=== PATIENT | male | born 1965 | race African-American/Black ===

== ENCOUNTER → 2023-09-15 08:48 | Outpatient (REF) | payer MEDICARE, OTHER, SELFPAY | LOC: HWRCS 08:48 | PROVIDERS: ATTENDING PHYSICIAN Internal Medicine Cardiovascular Disease; FAMILY PHYSICIAN Internal Medicine | DX: I25.5 Ischemic cardiomyopathy (principal) | CPT/HCPCS: 93306 ==

== ENCOUNTER → 2024-01-13 07:35 | Outpatient (REF) | payer OTHER, SELFPAY | LOC: DHCBC/DCA 07:35 | PROVIDERS: ATTENDING PHYSICIAN Internal Medicine Cardiovascular Disease; FAMILY PHYSICIAN Internal Medicine | DX: I25.5 Ischemic cardiomyopathy (principal) | CPT/HCPCS: 78452; 93017; A9500 ==

== ENCOUNTER 2024-02-01 11:51 | Inpatient (IN) | payer OTHER, SELFPAY ==
[2024-02-01] VITALS (12 sets, daily range): BP systolic 118–164; BP diastolic 65–115; BMI 34.6
--- NOTE | 2024-02-01 09:41 | ED.GENMED ---
History of Present Illness
General
Chief Complaint: Fainting/Passed Out
Source: patient and spouse
Exam Limitations: none
Time Seen by Provider: 02/01/24 09:40
Nursing documentation reviewed up to this point in time: agreed with
History of Present Illness
History of Present Illness:
The patient is a very pleasant 58-year-old man with a past medical history of coronary artery disease, CHF, and defibrillator who presents after having a syncopal episode while walking on a treadmill at around 6 AM today. Patient reports that he
had no symptoms while he was walking and the next thing he remembers was waking up in the sleeping position on the treadmill. He denies any pain. He denies headache. He does not think he hit his head. He denies neck and back pain. He denies
chest pain or shortness of breath. Patient's interrogation showed V-fib.
Past History
Past History
ED Past Medical History: CAD, CHF and HTN
ED Past Surgical History: Cardiac and Other (Defibrillator)
Social History
Tobacco: Other
Alcohol: Other
Drug: Other
Personal:
Living: with family
Employment: Other
Family History
Family History: Other
Review of Systems
Review of Systems
Allergies reviewed?: Yes
All Other Systems: ROS reviewed and negative except as documented in HPI and ROS
Constitutional: Reports no symptoms
EENT: Reports no symptoms
Respiratory: Reports no symptoms
Cardiac: Reports syncope
ABD/GI: Reports no symptoms
: Reports no symptoms
Musculoskeletal: Reports no symptoms
Skin: Reports no symptoms
Neurological: Reports no symptoms
Endocrine: Reports no symptoms
Hematologic/Lymphatic: Reports no symptoms
Psychiatric: Reports no symptoms
Phy Exam
Physical Exam
Physical Exam:
Physical Exam
General: no apparent distress, not acutely ill, atraumatic face and head. Patient is smiling, conversational
Neck: supple. nontender
Heart: s1/s2 regular rate and rhythm, no chest wall tenderness
Lungs: no acute respiratory distress. clear bilaterally. No vertebral spine tenderness
Abdomen: normal bowel sounds. not tender. no CVAT
Neuro: alert and oriented. no focal neurological deficits
Skin: no rash
Psychiatric: well kept. interactive and cooperative
Extremities: no edema. no calf tenderness. negative homans. good distal pulses, pelvis and hips nontender. Atraumatic upper and lower extremities
Course
Orders/Labs/Results
Orders:
Orders
02/01/24 09:31
Electrocardiogram (*1) Urgent
Reason for Study: Syncope
02/01/24 09:32
EKG- Treatment ONCE
02/01/24 10:32
CMP [Comprehensive Metabolic Panel] Urgent
Complete Blood Count/With Diff Urgent
Magnesium Urgent
Abnormal Lab Results
02/01/24
10:32
RBC 4.38 L 10^6/uL
(4.70-6.10)
MCV 96.1 H fL
(80.0-94.0)
MCH 33.1 H pg
(27.0-31.0)
MPV 11.3 H fL
(7.4-10.4)
BUN 26 H mg/dl
(9-20)
Glucose 105 H mg/dl
(70-99)
02/01/24 10:32
02/01/24 10:32
Vital Signs
Initial and Last Documented VS:
Initial Vital Signs
Temp Pulse Resp BP Pulse Ox
98.4 F 74 18 122/79 96
02/01/24 09:23 02/01/24 09:23 02/01/24 09:23 02/01/24 09:23 02/01/24 09:23
Last Documented Vital Signs
Temp Pulse Resp BP Pulse Ox
98.4 F 65 22 138/84 96
02/01/24 09:23 02/01/24 11:00 02/01/24 11:00 02/01/24 11:00 02/01/24 09:23
MDM/Problems Addressed
Differential Diagnosis Includes:
Ventricular fibrillation, ventricular tachycardia, acute coronary syndrome
MDM/Problems Addressed:
Patient presents after having an acute syncopal episode
Chronic conditions affecting care:
CHF, coronary artery disease
Acute Exacerbation and/or Progression of Chronic Illness:
Patient likely has acute exacerbation of chronic coronary artery disease
Acute Exacerbation and/or Progression of Chronic Illness: CAD and Cardiomyopathy
*Pulse Oximetry
Patient hypoxic: no
*EKG
Interpreted by ED Provider?: Yes
Interpretation: abnormal
Comparison EKG: no comparison EKG present
Rate: normal
Rhythm: sinus
[place]: normal axis
Interval: normal interval
QRS Pattern: normal QRS
Ischemia: non-specific ST changes
*Hot Frame Tender Interpretation
Rate: normal
Interpretation: normal
Rhythm: sinus
*Critical Care Note
Total Time (30-74mins, 75-104mins- exclusive of procedures): Not Applicable
Data Reviewed
Review of Other/Old Records Reveals: Testing (Cardiac echo showed an EF of 20 to 25%) and Other (I looked over defibrillator interrogation report which shows an episode of V-fib)
Source: patient and spouse
Update Note
Update Note:
11:30 AM patient continues to feel well and comfortable. Dr. Griffiths and hospitalist aware patient is being admitted.
ED Attending Note
-
Portions of this chart may have been created with voice recognition software.� Occasional wrong word or��sound alike� substitutions may have occurred due to the inherent limitations of voice recognition software.
Discharge Plan
Departure
Patient Disposition: Admit
Date of Disposition: 02/01/24
Time of Disposition: 10:40
Admit to: Telemetry
Presentation/result/management discussed w/ accepting MD/DO: Hospitalist
Condition: Good
Covid-19: Not Applicable
Discharge Problem:
AICD discharge, Syncope and collapse, History of ventricular fibrillation
Prescriptions:
No Action
aspirin 81 MG tablet,chewable
81 mg PO DAILY
furosemide 40 MG tablet
40 mg PO DAILY Qty: 60 0RF
rosuvastatin 10 MG tablet
10 mg PO QPM Qty: 60 0RF
magnesium oxide 500 MG tablet
250 mg PO DAILY
allopurinol 100 mg Tablet
100 mg PO TID
carvedilol [Coreg] 3.125 mg Tablet
3.125 mg PO BID
ibuprofen [Advil] 200 mg Tablet
200 mg PO BIDPRN PRN (Reason: mild pain)
colchicine 0.6 mg Tablet
0.6 mg PO DAILYPRN PRN (Reason: gout flares )
Entresto 24-26 mg Tablet
1 tab PO BID
Referrals:
Damien Morse MD [Family Provider] -
Interventions
Interventions:
*Risk Screen - Suicide Last Done: 02/01/24 10:15
*General Assessment Last Done: 02/01/24 10:15
*Neglect/Abuse Screening Last Done: 02/01/24 10:15
ED- Fall Risk Assessment Last Done: 02/01/24 10:15
*ED COVID-19 Vaccine History Last Done: 02/01/24 10:37
ED- Cardiac Assessment Last Done: 02/01/24 10:15
ED- Neurological Assessment Last Done: 02/01/24 10:15
Discharge Date and Time
Print Language: SINHALA
[2024-02-01 10:46] LABS: % Basophils 1.3 % (0-2); % Eosinophils 5.4 % (0-6); % Immature Granulocytes 0.2 % (0-0.5); % Lymphocytes 35.2 % (20.5-51.1); % Monocytes 8.9 % (1.7-9.3); Absolute Basophils 0.1 10^3/uL (0-0.2); Absolute Eosinophils 0.3 10^3/uL (0-0.7); Absolute Lymphocytes 2.2 10^3/uL (1.2-3.4); Absolute Monocytes 0.6 10^3/uL (0.1-0.6); Absolute Neutrophils 3.1 10^3/uL (1.4-6.5); Hematocrit 42.1 % (39.0-52.0); Hemoglobin 14.5 g/dL (13.0-18.0); Mean Corp Hgb Conc. 34.4 g/dL (33.0-37.0); Mean Corpuscular Hgb 33.1 pg (27.0-31.0); Mean Corpuscular Volume 96.1 fL (80.0-94.0); Mean Platelet Volume 11.3 fL (7.4-10.4); Nucleated Red Blood Cells % 0 % (-); Platelet Count 147 10^3/uL (130-400); Red Blood Cell Count 4.38 10^6/uL (4.70-6.10); Red Cell Dist. Width 13.8 % (11.5-14.5); White Blood Cell Count 6.3 10^3/uL (4.8-10.8)
[2024-02-01 11:02] LABS: ALT (SGPT) 44 U/L (0-50); AST (SGOT) 40 U/L (17-59); Albumin 4.1 g/dl (3.5-5.0); Alkaline Phosphatase 98 U/L (38-126); Blood Urea Nitrogen 26 mg/dl (9-20); Calcium 9.2 mg/dl (8.4-10.2); Carbon Dioxide 25 mmol/L (22-30); Chloride 107 mmol/L (98-107); Estimated Creatinine Clearance 73 ml/min; Glucose 105 mg/dl (70-99); Magnesium 2.1 mg/dl (1.6-2.3); Potassium 4.5 mmol/L (3.5-5.1); Sodium 137 mmol/L (135-145); Total Bilirubin 0.5 mg/dl (0.2-1.3); Total Protein 6.3 g/dl (6.3-8.2); eGFR > 60.00
[2024-02-01 13:35] LABS: ACT-LR - POC > 397 Seconds (116-155)
[2024-02-01 13:45] LABS: ACT-LR - POC 382 Seconds (116-155)
--- NOTE | 2024-02-01 14:14 | ITS.CL.CATH ---
Assistant Counsel - Catheterization
Cardiac Catheterization
Procedure Report:
LEFT HEART CATHETERIZATION AND CORONARY INTERVENTION
Date of Procedure: February 01, 2024
Referring: Dr. Placido Sim
PROCEDURES:
1. Left heart catheterization with coronary and single-plane left ventriculography
2. Successful stenting of the mid circumflex into a large terminal obtuse marginal branch with a 3.5 x 38 mm Geo stent that was implanted at nominal pressures then postdilated with a 3.75 mm noncompliant balloon to 16 butch.
INDICATION: This is a 58-year-old gentleman with a past medical history notable for coronary artery disease and single-vessel coronary artery bypass graft with RIOS-LAD 06/16/2017. Prior to that time he suffered a left MCA frontoparietal CVA
treated with thrombolysis on 03/03/2017. Neurologically he improved significantly. He was found to have an ischemic cardiomyopathy with an estimated ejection fraction of 25% and found to have total occlusion of the ostial LAD with a distal vessel
filling via well developed epicardial collaterals from the right to the LAD. Additionally, he has a history of hypertension, hyperlipidemia, and COPD. After his coronary artery bypass grafting he was referred for repeat coronary angiography and
found to have 100% occlusion of the RIOS-LAD when he was referred for coronary angiography on 11/19/2020.
The patient had a recent stress study notable for an estimated ejection fraction of 24%. Perfusion imaging revealed a medium area of moderately decreased perfusion that was fixed in the basal anteroseptal, basal inferior, mid anteroseptal, mid
anterior segments consistent with infarction. Additionally, there was a large area of absent tracer uptake that was fixed at the apex and apical anterior segment consistent with infarction.
The patient reports that he was at the gym this morning walking on a treadmill at 2.8-2.9 mph and experienced sudden loss of consciousness. He was unconscious for 10 to 15 seconds. He received an ICD shock. 911 was called, however, the patient
refused to go to the emergency department and returned home. He transmitted an ICD interrogation. An alert was transmitted this morning at 6 AM showing ventricular fibrillation cardioverted with a single 36 J shock. He was instructed to go to
[facility] for further evaluation. Of note, he did have an episode of ATP pacing in August 2023 and additional runs of NSVT.
ACCESS: Right radial artery, 6 [place]ese sheath
HEMODYNAMICS : (mmHg)
AO (s/d) : 109/76
LV (s/d) : 106/7
LVEDP : 12
CORONARY ANGIOGRAPHY
Dominance: Right
LEFT MAIN: Normal
LEFT ANTERIOR DESCENDIN% ostially occluded. The entirety of the LAD fills via very well developed epicardial collaterals from the RCA. The collaterals are also noted to fill the diagonal branch
RAMUS: Small
CIRCUMFLEX: The circumflex is a medium-large caliber nondominant vessel supplying a small OM1. The circumflex has a 40% stenosis midportion beyond the OM1 and terminates at a very large OM 2 that has diffuse 30% proximal narrowing and 80% hazy
stenosis in its midportion
RIGHT CORONARY ARTERY: The right coronary artery is a large-caliber dominant vessel with a high anterior origin from the aorta. The RCA has minor irregularities over its course but no focal obstructive stenosis. The PDA is a large. The
posterolateral branch is large. Well-developed epicardial collaterals are noted to fill the entirety of the LAD. Faint collaterals are also noted to fill a diagonal branch
GRAFT ANGIOGRAPHY:
1. RIOS-LAD: Known to be occluded and not selectively cannulated
LEFT VENTRICULOGRAPHY: Left ventriculography was performed in ERICKSON projection. The digital single-plane left ventricular ejection fraction is estimated at 25-30% with an extensive anterior anterolateral, and apical segment of severe hypokinesis to
akinesis. The inferior apical wall was also found to be severely hypokinetic
ANGIOPLASTY PROCEDURE DETAIL: Upon review of the diagnostic catheterization films the decision was made to proceed with percutaneous revascularization of the high-grade stenosis in OM 2. Intravenous heparin was administered and a 180 mg loading
dose of ticagrelor was given. The ACT was monitored throughout the procedure and maintained within therapeutic limits. A BMW guidewire was advanced across the stenosis and into the distal vessel. Balloon predilation was performed with a 2.25 x 20
mm Euphora balloon and was followed by placement of a 3.5 x 38 mm Geo stent that was implanted at nominal pressures and postdilated to 16 butch with a 3.75 mm noncompliant balloon
RADIATION SUMMARY: Fluoro Time (min): 12.5, Dose (mGy): 1093, DAP (Gy.cm2) : 68
Closure Device: TR band
CONCLUSION
1. Successful stenting of the mid circumflex into a large terminal obtuse marginal branch with a 3.5 x 38 mm [place] stent that was postdilated with a 3.75 mm noncompliant balloon
2. Chronically occluded ostial LAD and RIOS-LAD with the LAD filling via well-developed right to left collaterals filling back to the origin
3. Ischemic cardiomyopathy
RECOMMENDATIONS
1. Uninterrupted dual antiplatelet therapy for 6 to 12 months
2. Will discuss further evaluation with EP service, however, unlikely that any additional intervention will be required at this time given reversible cause for arrhythmia
Copy to: Dr. Placido Sim
[2024-02-01 14:23] LABS: Troponin I < 0.012 ng/ml
[2024-02-01] MEDS: NSS 1000 IV (14:30)
--- NOTE | 2024-02-01 14:38 | HPS.HSE ---
Family Physician
-
Family Physician: Damien Morse
Chief Complaint
-
Syncopal episode, V-fib
History of Present Illness
58-year-old male with past medical history of CAD, CHF -most likely HFrEF with ICD now presents for syncopal episode. Patient was walking on the treadmill, subsequently passed out. No known head strike. He remembers was waking up laying down on
the treadmill. No chest pain, headache, neck pain, fever, chills, dizziness, lightheadedness. In the ED, ICD interrogated and had shown V-fib. Patient resting comfortably upon presentation today. Heart rate 63, respiratory rate 21, blood
pressure 118/70, saturating 98% on room air.
Medical History
Past Medical History
Past Medical History: Reports CAD and CHF
Past Surgical History: Reports None
Social History
Tobacco: Non-smoker
Drug: None
Family History
Family History: Not pertinent
Allergies / Home Medications
Allergies reflects when Allergies were last updated in [facility].
Home Medications with original date entered in [facility]
Allergy/Medication List:
Allergies
Allergy/AdvReac Type Severity Reaction Status Date / Time
No Known Allergies Allergy Verified 02/01/24 09:23
Home Medications
aspirin 81 mg chewable tablet 81 mg PO DAILY Blood clot prevention/tx 06/15/17
furosemide 40 mg tablet 40 mg PO DAILY Heart Failure #60 tabs 11/01/20
rosuvastatin 10 mg tablet 10 mg PO QPM High cholesterol #60 tabs 11/01/20
allopurinol 100 mg tablet 100 mg PO TID 02/01/24
carvedilol 3.125 mg tablet (Coreg) 3.125 mg PO BID 02/01/24
colchicine 0.6 mg tablet 0.6 mg PO DAILYPRN PRN gout flares 02/01/24
ibuprofen 200 mg tablet (Advil) 200 mg PO BIDPRN PRN mild pain 02/01/24
magnesium oxide 250 mg PO DAILY suppliment 02/01/24
sacubitril 24 mg-valsartan 26 mg tablet (Entresto) 1 tab PO BID 02/01/24
Review of Systems
-
History Source: Patient
A 12 point ROS was completed and negative except as noted: Yes
Physical Exam
Vital Signs
Vital Signs
Temp Pulse Resp BP Pulse Ox
98.4 F 63 21 118/70 98
02/01/24 09:23 02/01/24 12:15 02/01/24 12:15 02/01/24 12:07 02/01/24 12:15
Physical Exam
General: Well Developed, Well Nourished and No Apparent Distress
HEENT: NormoCephalic
Respiratory: Clear
Cardiac: S1/S2 and Regular Rhythm
GI: Soft and Non Tender
Musculoskeletal: No Clubbing
Skin: Warm and Dry
Neuro: Awake, Alert, Oriented and AO x 3
Hematologic/Lymphatic: No Lymphadenopathy
Laboratory Results
-
02/01/24 10:32
02/01/24 10:32
Laboratory Results
Total Bilirubin 0.5 mg/dl (0.2-1.3) 02/01/24 10:32
AST 40 U/L (17-59) 02/01/24 10:32
ALT 44 U/L (0-50) 02/01/24 10:32
Alkaline Phosphatase 98 U/L (38-126) 02/01/24 10:32
Troponin I < 0.012 ng/ml 02/01/24 13:53
Data Reviewed
-
Lab Data: Labs Reviewed by me
Impression/Plan
-
IMPRESSION:
58-year-old male with past medical history of HFrEF, ICD, CAD now presents for syncopal episode, found to have ventricular fibrillation on interrogation of ICD.
PLAN:
#Syncope
#V-fib
� Aspirin, add Brilinta
� Plan for cardiac cath tomorrow
Continue telemetry next�continue troponin trend
� Continue Coreg
#HFrEF
� EF of 24% in January 2021
� Cardiac cath tomorrow
� Continue Lasix, Coreg, Entresto
#CAD
� Continue aspirin, Brilinta
� Coreg, Entresto
� Cardiac cath tomorrow
� Crestor
#DVT prophylaxis
� HSQ
--- NOTE | 2024-02-01 16:25 | CON.CAR ---
Addendum entered and electronically signed by Kishan Lopez MD 02/01/24 17:19:
Attending addendum: Patient seen and examined. PA note reviewed and findings independently confirmed by me. Briefly, this is a 58-year-old gentleman with a past medical history notable for coronary artery disease and single-vessel coronary artery
bypass grafting with a RIOS-LAD on 06/16/2017. Prior to that time he suffered a left MCA frontoparietal stroke treated with thrombolysis in February 2017. He was found to have ischemic cardiomyopathy at that time with an estimated ejection fraction
of 25% with ostial occlusion of the LAD. The distal vessel was noted to fill via well developed epicardial coronary collaterals from the right to the LAD. Additionally, he has a history of hypertension, hyperlipidemia, and COPD. After his
coronary artery bypass grafting repeat coronary angiography was performed on 11/19/2020 and found that the RIOS-LAD is occluded. The patient had a recent stress study and perfusion was notable for a medium area of moderately decreased uptake that
was fixed in a large area of absent tracer uptake that was fixed at the apex and apical anterior segment.
The patient reports that he was in his normal state of health and this morning was exercising at the gym when he experienced sudden loss of consciousness. He was unconscious for 10 to 15 seconds when his ICD discharge. 911 was called but the
patient refused to go to the emergency department and returned home. At home he transmitted an ICD interrogation findings ventricular fibrillation as the etiology for his syncopal event. A single 36 J shock was administered with voodoo of
sinus rhythm. He was instructed to present to the emergency department for further evaluation and probable coronary angiography
Physical exam:
GEN: Patient is found to be awake, alert, and oriented. He is pleasant and conversant and in no acute distress. He denies any chest discomfort.
HEENT: NC/AT, sclera are anicteric, hearing normal.
LUNGS: Diminished breath sounds in lower lung mccracken bilaterally.
CV: Regular rate and rhythm. Normal S1/S2. Murmur: Soft murmur at LLSB
ABD : Soft, NT, ND, No HSM. Bowel sounds are present.
EXT: No CCE. Right radial pulse intact and good dorsalis pedal pulse.
NEURO: No focal neurologic deficits
RECOMMENDATIONS:
-Ventricular fibrillation with appropriate ICD discharge
Planned cardiac catheterization.
Discussed risk and benefit at length.
Further management decisions based on catheterization results.
If coronary anatomy is stable will get EP involved to decide drug vs ablation
-Coronary artery disease: s/p RIOS-LAD failed to mature. 100% occlusion of ostial LAD.
Further management based on
-Ischemic cardiomyopathy: Guideline directed medical therapy
Original Note:
Consultation
Consultation Request
Date/Time Consultation Requested: 02/01/24
Date/Time Consultation Performed: 02/01/24
Performing Provider: Dr. Lopez
Reason for Consultation: VF with AICD shock
Medical History
-
History of Present Illness:
Patient came to ER today after an episode of VF and collapse at his local gym this morning and cardiology has been consulted. Patient says he regularly wakes up at around 2:00 in the morning to take some of his morning medications, eat a snack
and then sometimes get up and have an early workout. He was at the gym this morning walking on the treadmill when he suddenly felt tired and then woke up on the ground. Other people in the gym called 911 and paramedics performed an EKG and patient
ultimately declined transportation to the ER because it would have taken him to [facility] ER. Instead he went home and downloaded his Medtronic DC ICD and when our office received the report we found that he had VF with a successful AICD shock. The
office called the patient and recommended he go to ER. Patient denies any chest pain. He exercises several times a week without any chest pain recently. He has a history of CAD with CABG in 2017. When he last saw Dr. Ajit batista in the office
on 12/22/2023 he was ordered a an exercise nuclear stress test because he had insurance which she had not had for many years and was not able to pursue stress testing. He exercised for 8 minutes achieving 9.25 METS and 84% of MPHR. The stress test
showed a large area fixed defect anteriorly concerning for scar. There is no evidence of ischemia. He reports he is taking his medicines as prescribed. There is a history of cocaine use.
PMH:
CAD
s/p off-pump CABG with RIOS to LAD 06/16/17
s/p 3.5 mm [place] to large terminal OM 02/01/24
Chronic HFrEF
Ischemic CM previously as low as 15-20% by echo 11/01/19 and then 20-25% by echo 09/15/23
s/p CVA with left frontoparietal stroke in February 2016
Hyperlipidemia
h/o Nonsustained ventricular tachycardia
Hypertension
h/o cocaine/ETOH use
Past Medical History
Past Medical History: Other (in HPI)
Past Surgical History: Cardiac (s/p CABG 2016, Medtronic DC ICD 02/24/21)
Social History
Tobacco: Former Smoker
Alcohol: Occasional (2-4 times a month)
Drug: Former User (cocaine as recently as 2020, but denies anything more recent)
Personal: Single
Family History
Family History: CAD, Cancer and Diabetes
Allergies / Home Medications
Allergy/AdvReac Type Severity Reaction Status Date / Time
No Known Allergies Allergy Verified 02/01/24 09:23
�Medication �Instructions �Recorded �Confirmed �Type
aspirin 81 mg chewable tablet 81 mg PO DAILY Blood clot 06/15/17 02/01/24 History
prevention/tx
furosemide 40 mg tablet 40 mg PO DAILY Heart Failure #60 11/01/20 02/01/24 Rx
tabs
rosuvastatin 10 mg tablet 10 mg PO QPM High cholesterol #60 11/01/20 02/01/24 Rx
tabs
allopurinol 100 mg tablet 100 mg PO TID 02/01/24 02/01/24 History
carvedilol 3.125 mg tablet (Coreg) 3.125 mg PO BID 02/01/24 02/01/24 History
colchicine 0.6 mg tablet 0.6 mg PO DAILYPRN PRN gout flares 02/01/24 02/01/24 History
ibuprofen 200 mg tablet (Advil) 200 mg PO BIDPRN PRN mild pain 02/01/24 02/01/24 History
magnesium oxide 250 mg PO DAILY suppliment 02/01/24 02/01/24 History
sacubitril 24 mg-valsartan 26 mg 1 tab PO BID 02/01/24 02/01/24 History
tablet (Entresto)
Review of Systems
-
History Source: Patient and Family (mother sitting bedside helping with HPI)
All other systems: Negative unless noted
Physical Exam
Vital Signs
Temp Pulse Resp BP Pulse Ox
97.8 F 59 16 139/65 100
02/01/24 14:30 02/01/24 14:45 02/01/24 14:30 02/01/24 14:45 02/01/24 14:45
GEN: NAD. AAOx3
HEENT: EOMI, MMM
LUNGS: Diminished BS at bases B/L without audible wheeze
CV: Reg, S1/S2
ABD: soft, BS+, NT, ND
EXT: +2 B/P DP and PT pulses, +2 right radial pulse. No clubbing, cyanosis, lesions or edema B/L
NEURO: Gross non-focal
SKIN: Warm and dry. No rash
Lab Results
02/01/24 10:32
02/01/24 10:32
Troponin I < 0.012 ng/ml 02/01/24 13:53
Impression / Plan
-
PCP: Dr. Syed Aranda
Cardiology: Dr. Sim
Impression:
VF with successful AICD shock 02/01/24
CAD
s/p off-pump CABG with RIOS to LAD 06/16/17
s/p 3.5 mm [place] to large terminal OM 02/01/24
Chronic HFrEF
Ischemic CM previously as low as 15-20% by echo 11/01/19 and then 20-25% by echo 09/15/23
s/p CVA with left frontoparietal stroke in February 2016
Hyperlipidemia
h/o Nonsustained ventricular tachycardia
Hypertension
h/o cocaine/ETOH use
Echo 04/01/20: EF 30-35%, trace MR
Echo 11/01/19: EF 15-20% with no signif valve dx
Echo 09/15/23: EF 20 to 25%, global hypokinesis with akinesis of the mid to distal anterior and apical walker, mild MR, no aortic regurgitation, mild TR with PAP 37 mmHg
Plan:
-Patient came to ER today after an episode of VF and collapse at his local gym this morning and cardiology has been consulted. Patient says he regularly wakes up at around 2:00 in the morning to take some of his morning medications, eat a snack
and then sometimes get up and have an early workout. He was at the gym this morning walking on the treadmill when he suddenly felt tired and then woke up on the ground. Other people in the gym called 911 and paramedics performed an EKG and patient
ultimately declined transportation to the ER because it would have taken him to [facility] ER. Instead he went home and downloaded his Medtronic DC ICD and when our office received the report we found that he had VF with a successful AICD shock. The
office called the patient and recommended he go to ER. Patient denies any chest pain. He exercises several times a week without any chest pain recently. He has a history of CAD with CABG in 2017. When he last saw Dr. Ajit batista in the office
on 12/22/2023 he was ordered a an exercise nuclear stress test because he had insurance which she had not had for many years and was not able to pursue stress testing. He exercised for 8 minutes achieving 9.25 METS and 84% of MPHR. The stress test
showed a large area fixed defect anteriorly concerning for scar. There is no evidence of ischemia. He reports he is taking his medicines as prescribed. There is a history of cocaine use.
-No chest pain, but in the setting of VF and CAD plan is to perform cardiac cath to look for new obstructive CAD. Informed consent obtained in the ER and will cath today.
-Check Troponin levels
-Check urine drug scree.
-Continue usual dose of Coreg 3.125 mg twice daily
-Continue usual dose of Entresto 24/26 mg twice daily
-Continue usual dose of Crestor 10 mg daily
-He took his usual dose of aspirin 81 mg daily this morning.
-ECG reviewed by me with SR and lateral T wave inversions
--- NOTE | 2024-02-01 16:35 | CM ---
spoke to pt in room, he is prev indep, lives with his in a 2 story home with 3 steps to enter. he has a cane and a walker to use if needed. plan is for dc to home when medically stable.
--- NOTE | 2024-02-01 16:49 | CM ---
priced alba at [facility], his copay is $222.40/month- with the copay card his cost is $22.40/month
they donot have it in stock today but are ordering it, and will arrive tomorrow.
[2024-02-01] MEDS: ZYLOPRIM 100 MG PO ×2 (17:04→22:13)
[2024-02-01] MEDS: CRESTOR 10 MG PO (17:04)
[2024-02-01] MEDS: HEPARIN SC (17:05)
--- NOTE | 2024-02-01 18:00 | PTCARENOTE ---
Pt received post procedure at 1430. Right rad band intact and site WNL.
--- NOTE | 2024-02-01 19:17 | PTCARENOTE ---
Radial site clean and dry after band removed. Pt oob ad yun in the room. No c/o offered.
[2024-02-01] MEDS: ENTRESTO 24 MG/26 MG 1 TAB PO (19:31)
[2024-02-01] MEDS: COREG 3.125 MG PO (19:31)
[2024-02-01] MEDS: BRILINTA 90 MG PO (19:32)
[2024-02-01 20:51] LABS: Troponin I 0.112 ng/ml
--- NOTE | 2024-02-01 23:35 | PTCARENOTE ---
Received patient for the night in bed. SR on the monitor. Radial site intact. Urine specimen collected. Troponin was elevated, Dr. Hernandez notified through tiger text. Patient reports no chest pain. Call meneses within reach.
[2024-02-01 23:46] LABS: Amphetamines Negative (Negative); Barbiturates Negative (Negative); Benzodiazepines Negative (Negative); Buprenorphine Negative (Negative); Cocaine Negative (Negative); Marijuana Negative (Negative); Methadone Negative (Negative); Methamphetamines Negative (Negative); Opiates Negative (Negative); Phencyclidine Negative (Negative); Tricyclic Antidepressants Negative (Negative)
[2024-02-02] VITALS (7 sets, daily range): BP systolic 114–131; BP diastolic 80–95; BMI 33.4
[2024-02-02] MEDS: HEPARIN 5000 UNITS SC (00:21)
[2024-02-02 04:50] LABS: Hematocrit 40.2 % (39.0-52.0); Hemoglobin 14.2 g/dL (13.0-18.0); Mean Corp Hgb Conc. 35.3 g/dL (33.0-37.0); Mean Corpuscular Hgb 32.6 pg (27.0-31.0); Mean Corpuscular Volume 92.4 fL (80.0-94.0); Mean Platelet Volume 11.8 fL (7.4-10.4); Platelet Count 156 10^3/uL (130-400); Red Blood Cell Count 4.35 10^6/uL (4.70-6.10); Red Cell Dist. Width 13.6 % (11.5-14.5); White Blood Cell Count 6.1 10^3/uL (4.8-10.8)
[2024-02-02 05:17] LABS: ALT (SGPT) 42 U/L (0-50); AST (SGOT) 39 U/L (17-59); Albumin 3.7 g/dl (3.5-5.0); Alkaline Phosphatase 102 U/L (38-126); Blood Urea Nitrogen 22 mg/dl (9-20); Calcium 9.3 mg/dl (8.4-10.2); Carbon Dioxide 23 mmol/L (22-30); Chloride 111 mmol/L (98-107); Estimated Creatinine Clearance 87 ml/min; Glucose 103 mg/dl (70-99); HDL Cholesterol 49 mg/dl; LDL Cholesterol, Calculated 53 mg/dl; Magnesium 2.1 mg/dl (1.6-2.3); Potassium 4.3 mmol/L (3.5-5.1); Sodium 139 mmol/L (135-145); Total Bilirubin 0.5 mg/dl (0.2-1.3); Total Cholesterol 136 mg/dl (50-199); Triglyceride 170 mg/dl (10-149); Very Low Density Lipoprotein 34 mg/dl (0-30); eGFR > 60.00
[2024-02-02 05:34] LABS: Troponin I 0.637 ng/ml
[2024-02-02] MEDS: MAGNESIUM OXIDE 250 MG PO (07:35)
[2024-02-02] MEDS: COREG 3.125 MG PO ×2 (07:36→20:01)
[2024-02-02] MEDS: LASIX 40 MG PO (07:37)
[2024-02-02] MEDS: LOW STRENGTH ASPIRIN 81 MG PO (07:37)
[2024-02-02] MEDS: ZYLOPRIM 100 MG PO ×3 (07:37→21:28)
[2024-02-02] MEDS: ENTRESTO 24 MG/26 MG 1 TAB PO ×2 (07:40→20:01)
[2024-02-02] MEDS: BRILINTA 90 MG PO (07:40)
[2024-02-02] MEDS: HEPARIN SC (08:32)
--- NOTE | 2024-02-02 11:20 | W.PN.CARDCBS ---
Addendum entered and electronically signed by Phani Sim MD 02/02/24 15:51:
I saw and examined the patient.
The Water Quality Assistant's note was reviewed and I agree with the note.
Comment:
GEN: No distress, awake, Ox3
HEENT: supple, anicteric, mmm
LUNGS: CTA, no wheezes/rales
CV: Reg, S1/S2, 1/6 syst LSB, no gallop
ABD: soft, BS+, NT/ND
EXT: No edema
NEURO: Gross non-focal
SKIN: No rash
Plan:
Clinically feels well. Still having some brief 3-4 beat runs of nonsustained VT.
Continue telemetry for another 24 hours.
Will start amiodarone 200 mg p.o. 3 times daily for at least a short period of time.
It remains unclear whether his VT was from ischemia/non-STEMI, or from scar based ischemic cardiomyopathy.
Overall doing well status post left circumflex PCI. Continue aspirin and Brilinta.
Continue Coreg, Entresto, and Lasix. Will check cost of Farxiga/Jardiance.
LDL is 53. Will increase Crestor to 20 mg daily.
Original Note:
Today's Communication / Plan
-
Start amiodarone
Trend Troponin to peak
ICD reprogrammed per Medtronic suggestions following shock for VF
Impression / Plan
-
PCP: Dr. Syed Aranda
Cardiology: Dr. Sim
Impression:
VF with successful AICD shock 02/01/24
CAD
s/p off-pump CABG with RIOS to LAD 06/16/17
s/p 3.5 mm [place] to large terminal OM 02/01/24
Chronic HFrEF
Ischemic CM previously as low as 15-20% by echo 11/01/19 and then 20-25% by echo 09/15/23
s/p CVA with left frontoparietal stroke in February 2016
Hyperlipidemia
h/o Nonsustained ventricular tachycardia
Hypertension
h/o cocaine/ETOH use
Elevated Troponin
Echo 04/01/20: EF 30-35%, trace MR
Echo 11/01/19: EF 15-20% with no signif valve dx
Echo 09/15/23: EF 20 to 25%, global hypokinesis with akinesis of the mid to distal anterior and apical walker, mild MR, no aortic regurgitation, mild TR with PAP 37 mmHg
Plan:
-Overnight tele reviewed and he has self-terminated runs of NSVT. Will add amiodarone 200 mg TID
-Patient with VF and successful AICD shock on admission. [employer] recommended reprogramming of his defibrillation pathways which was performed 02/02/24. Battery longevity greater than 5 years.
-Cardiac cath showed new Circumflex lesion that was stented.
-Outpatient dose of aspirin continued and he is new to Brilinta. is checking cost, but he has commercial insurance and should be able to use the co-pay card.
-Troponin checked post-cath, but was never checked on admission in the ER. Initiatl Troponin 0.112 and now up to 1.21 on 02/02/24 AM. Will trend to peak. This is likely due to VF and shock. He never had any chest pain.
-Tox screen was negative.
-Continue usual dose of Coreg 3.125 mg twice daily
-Continue usual dose of Entresto 24/26 mg twice daily
-Continue usual dose of Crestor 10 mg daily
HPI: Patient came to ER today after an episode of VF and collapse at his local gym this morning and cardiology has been consulted. Patient says he regularly wakes up at around 2:00 in the morning to take some of his morning medications, eat a
snack and then sometimes get up and have an early workout. He was at the gym this morning walking on the treadmill when he suddenly felt tired and then woke up on the ground. Other people in the gym called 911 and paramedics performed an EKG and
patient ultimately declined transportation to the ER because it would have taken him to [facility] ER. Instead he went home and downloaded his Medtronic DC ICD and when our office received the report we found that he had VF with a successful AICD shock.
The office called the patient and recommended he go to ER. Patient denies any chest pain. He exercises several times a week without any chest pain recently. He has a history of CAD with CABG in 2017. When he last saw Dr. Ajit batista in the
office on 12/22/2023 he was ordered a an exercise nuclear stress test because he had insurance which she had not had for many years and was not able to pursue stress testing. He exercised for 8 minutes achieving 9.25 METS and 84% of MPHR. The stress
test showed a large area fixed defect anteriorly concerning for scar. There is no evidence of ischemia. He reports he is taking his medicines as prescribed. There is a history of cocaine use.
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
Subjective
Date of Service: February 02, 2024
No chest pain
Objective
Labs:
02/02/24 04:32
02/02/24 04:32
Labs
Hgb 14.2 g/dL (13.0-18.0) 02/02/24 04:32
Hct 40.2 % (39.0-52.0) 02/02/24 04:32
Plt Count 156 10^3/uL (130-400) 02/02/24 04:32
Sodium 139 mmol/L (135-145) 02/02/24 04:32
Potassium 4.3 mmol/L (3.5-5.1) 02/02/24 04:32
BUN 22 mg/dl (9-20) H 02/02/24 04:32
Creatinine 1.1 mg/dL (0.7-1.3) 02/02/24 04:32
Glucose 103 mg/dl (70-99) H 02/02/24 04:32
Troponins
02/01/24 02/01/24 02/01/24
13:53 14:00 20:16
Troponin I < 0.012 Cancelled 0.112 H* D
02/02/24 02/02/24
04:32 08:00
Troponin I 0.637 H* Cancelled
Vital Signs and I&O:
Vital Signs
Temp Pulse Resp BP Pulse Ox
98.2 F 61 16 130/81 100
02/02/24 08:05 02/02/24 08:05 02/02/24 08:05 02/02/24 07:37 02/02/24 08:05
Vital Signs
Temp Pulse Resp BP Pulse Ox
98.2 F 61 16 130/81 100
02/02/24 08:05 02/02/24 08:05 02/02/24 08:05 02/02/24 07:37 02/02/24 08:05
Physical Exam
Physical Exam
GEN: AAOx3
HEENT: MMM
LUNGS: No wheeze
CV: SR with short runs on NSVT on tele
ABD: ND
EXT: No edema B/L
NEURO: Gross non-focal
SKIN: No rash
[2024-02-02] MEDS: PACERONE 200 MG PO ×3 (12:01→21:29)
--- NOTE | 2024-02-02 13:38 | CM ---
CM following for DC planning needs.
Reviewed initial assessment. Pt. resides in a private, 2 story home w/ [address] w/ spouse. Functionally, patient is indep. w/ ADLs, mobility without use of any assisted device.
Anticipated DC plan is for home, no needs.
CM to follow.
--- NOTE | 2024-02-02 14:22 | W.CARD.DEVCH ---
Cardiac Device Check
-
Device: Implanted Cardioverter-Defibrillator
Aerodynamics Engineer: Medtronic
The patient's device was interrogated with assistance of the device new accounts representative followed by a complete physician review. The device had normal function. No abnormalities seen.
Device reprogrammed after shock for VF yesterday morning.
--- NOTE | 2024-02-02 14:53 | W.PN.HOSP.TC ---
Today's Communication/Plan
-
amiodarone 200mg tid
ICD reprogramming
Trend trops to peak although most likely 2/2 to VF and shock
Assessment / Plan
Assessment / Plan
GEN: NAD. AAOx3
HEENT: EOMI, MMM
LUNGS: Diminished BS at bases B/L without audible wheeze
CV: Reg, S1/S2
ABD: soft, BS+, NT, ND
EXT: +2 B/P DP and PT pulses, +2 right radial pulse. No clubbing, cyanosis, lesions or edema B/L
NEURO: Gross non-focal
SKIN: Warm and dry. No rash
#Syncope
#V-fib
� Aspirin, add Brilinta
� cardiac cath 01/31 - s/p 3.5 mm [place] to large terminal OM 02/01/24
Continue telemetry next�continue troponin trend until peak
� Continue Coreg
-Start amiodarone 200mg TID
-ICD reprogrammed per Medtronic suggestions following shock for VF
#HFrEF
� EF of 24% in January 2021
� Cardiac cath 30 - s/p 3.5 mm [place] to large terminal OM 02/01/24
� Continue Lasix, Coreg, Entresto
#CAD
- s/p off-pump CABG with RIOS to LAD 06/16/17
-� Cardiac cath 30 - s/p 3.5 mm [place] to large terminal OM 02/01/24
� Continue aspirin, Brilinta
� Coreg, Entresto
� Crestor
#Elevated Troponin
-Most likely 2/2 to nonischemic myocardial injury
-most likely 2/2 to VF and shock
#DVT prophylaxis
� HSQ
Anticipated Discharge: Within 24 hours
Subjective/Interval History
-
Date of Service: February 02, 2024
no acute events
Objective Data
-
Labs:
Laboratory Results
02/02/24
04:32
WBC 6.1
Hgb 14.2
Hct 40.2
Plt Count 156
Sodium 139
Potassium 4.3
Chloride 111 H
Carbon Dioxide 23
BUN 22 H
Creatinine 1.1
Glucose 103 H
Calcium 9.3
Total Bilirubin 0.5
AST 39
ALT 42
Alkaline Phosphatase 102
Vital Signs:
Vital Signs
Temp Pulse Resp BP Pulse Ox
98.0 F 79 16 124/85 100
02/02/24 11:15 02/02/24 12:00 02/02/24 11:15 02/02/24 11:12 02/02/24 08:05
Review of Systems
-
History Source: Patient
All other systems: Not reviewed unless documented
Data Reviewed
-
Medical Tests (Nuc Med, Echo etc): Image personally visualized and interpreted and Report Reviewed by me
Labs: Labs Reviewed by me
--- NOTE | 2024-02-02 16:50 | PTCARENOTE ---
Pt with no c/o of any chest pain or sob today. Continues with SR with occasional couplets, triplets and single PVC's. OOB ad yun in the room.
[2024-02-02] MEDS: CRESTOR 10 MG PO (17:44)
[2024-02-03 04:02] VITALS: BP 118/77
[2024-02-03 04:53] LABS: Hematocrit 41.9 % (39.0-52.0); Hemoglobin 14.7 g/dL (13.0-18.0); Mean Corp Hgb Conc. 35.1 g/dL (33.0-37.0); Mean Corpuscular Hgb 33.5 pg (27.0-31.0); Mean Corpuscular Volume 95.4 fL (80.0-94.0); Mean Platelet Volume 11.8 fL (7.4-10.4); Platelet Count 141 10^3/uL (130-400); Red Blood Cell Count 4.39 10^6/uL (4.70-6.10); Red Cell Dist. Width 13.3 % (11.5-14.5); White Blood Cell Count 6.7 10^3/uL (4.8-10.8)
[2024-02-03 06:00] VITALS: BMI 33.4
[2024-02-03 06:04] LABS: Blood Urea Nitrogen 23 mg/dl (9-20); Calcium 9.6 mg/dl (8.4-10.2); Carbon Dioxide 22 mmol/L (22-30); Chloride 107 mmol/L (98-107); Estimated Creatinine Clearance 85 ml/min; Glucose 98 mg/dl (70-99); Potassium 4.4 mmol/L (3.5-5.1); Sodium 138 mmol/L (135-145); eGFR > 60.00
[2024-02-03 06:12] LABS: Troponin I 0.762 ng/ml
--- NOTE | 2024-02-03 06:22 | PTCARENOTE ---
Pt in NSR with PVS and PAC, VSS denies pain or discomfort this shift.
[2024-02-03 07:19] VITALS: BP 118/80
[2024-02-03] MEDS: ZYLOPRIM 100 MG PO (08:20)
[2024-02-03] MEDS: PACERONE 200 MG PO (08:20)
[2024-02-03] MEDS: LOW STRENGTH ASPIRIN 81 MG PO (08:20)
[2024-02-03] MEDS: LASIX 40 MG PO (08:20)
[2024-02-03] MEDS: COREG 3.125 MG PO (08:21)
[2024-02-03] MEDS: ENTRESTO 24 MG/26 MG 1 TAB PO (08:21)
[2024-02-03] MEDS: MAGNESIUM OXIDE 250 MG PO (08:23)
[2024-02-03] MEDS: PLAVIX 600 MG PO (08:24)
--- NOTE | 2024-02-03 08:41 | PTCARENOTE ---
Rec'd pt this shift awake and alert sitting in bed. Pt NSR on monitor, RA, lungs clear. AM meds given. Pt denies pain, denies sob. See worklist for VS/I and O and assessments.
--- NOTE | 2024-02-03 09:04 | CM ---
Priced Farxiga thru patient's RX plan [phone].
Patient is responsible for 50% of the cost. Estimated cost of medication would be $114.60.
Also priced Brilinta again thru insurance. Estimated cost of medication is $222.40.
Patient DOES have Medicare and therefore would not qualify for coupons beyond the free 30 d coupon.
I have alerted Cardiac PAYulianaC.
--- NOTE | 2024-02-03 11:46 | CM ---
CM following for DC planning needs.
Met w/ patient at bedside. Pt. is anticipating DC to home today, has transport.
Pt. declines any DC needs at this time.
Plan is for home, no needs.
[2024-02-03 12:23] VITALS: BP 124/82
--- NOTE | 2024-02-03 14:22 | W.PN.CARDCBS ---
Addendum entered and electronically signed by Phani Sim MD 02/03/24 17:24:
I saw and examined the patient.
The Refinery Operator's note was reviewed and I agree with the note.
Comment: GEN: No distress, awake, Ox3
HEENT: supple, anicteric, mmm
LUNGS: CTA, no wheezes/rales
CV: Reg, S1/S2, 1/6 syst LSB, no gallop
ABD: soft, BS+, NT/ND
EXT: No edema
NEURO: Gross non-focal
SKIN: No rash
Plan:
He feels well. No chest pains and on telemetry only has very brief runs of nonsustained VT.
He is unable to afford Brilinta or Farxiga. We will use aspirin and Plavix for his antiplatelets.
Continue Coreg and Entresto. I encouraged compliance with him.
He is stable for discharge.
Continue amiodarone 200 mg p.o. twice daily x 1 month and 200 mg daily.
Original Note:
Today's Communication / Plan
-
D/C to home
Changed to Plavix starting this AM
Impression / Plan
-
PCP: Dr. Syed Aranda
Cardiology: Dr. Sim
Impression:
VF with successful AICD shock 02/01/24
CAD
s/p off-pump CABG with RIOS to LAD 06/16/17
s/p 3.5 mm [place] to large terminal OM 02/01/24
Chronic HFrEF
Ischemic CM previously as low as 15-20% by echo 11/01/19 and then 20-25% by echo 09/15/23
s/p CVA with left frontoparietal stroke in February 2016
Hyperlipidemia
h/o Nonsustained ventricular tachycardia
Hypertension
h/o cocaine/ETOH use
Elevated Troponin
Echo 04/01/20: EF 30-35%, trace MR
Echo 11/01/19: EF 15-20% with no signif valve dx
Echo 09/15/23: EF 20 to 25%, global hypokinesis with akinesis of the mid to distal anterior and apical walker, mild MR, no aortic regurgitation, mild TR with PAP 37 mmHg
Plan:
-Loaded with 800 mg amiodarone this admission and will d/c to home on amiodarone 200 mg BID for 2 weeks then once daily thereafter.
-Patient with VF and successful AICD shock on admission. [employer] recommended reprogramming of his defibrillation pathways which was performed 02/02/24. Battery longevity greater than 5 years.
-Cardiac cath showed new Circumflex lesion that was stented.
-Outpatient dose of aspirin continued. He is on Medicare/Medicaid and cannot use co-pay card so he was switched to Plavix 02/03/24.
-Troponin peaked at 1.2. This is likely due to VF and shock. He never had any chest pain.
-Tox screen was negative.
-Continue usual dose of Coreg 3.125 mg twice daily
-Continue usual dose of Entresto 24/26 mg twice daily
-Continue usual dose of Crestor 10 mg daily
-Cannot add SGLT-2 due to cost
-D/C to home 02/03/24
HPI: Patient came to ER today after an episode of VF and collapse at his local gym this morning and cardiology has been consulted. Patient says he regularly wakes up at around 2:00 in the morning to take some of his morning medications, eat a
snack and then sometimes get up and have an early workout. He was at the gym this morning walking on the treadmill when he suddenly felt tired and then woke up on the ground. Other people in the gym called 911 and paramedics performed an EKG and
patient ultimately declined transportation to the ER because it would have taken him to [facility]. Instead he went home and downloaded his Medtronic DC ICD and when our office received the report we found that he had VF with a successful AICD shock.
The office called the patient and recommended he go to ER. Patient denies any chest pain. He exercises several times a week without any chest pain recently. He has a history of CAD with CABG in 2017. When he last saw Dr. Fong back in the
office on 12/22/2023 he was ordered a an exercise nuclear stress test because he had insurance which she had not had for many years and was not able to pursue stress testing. He exercised for 8 minutes achieving 9.25 METS and 84% of MPHR. The stress
test showed a large area fixed defect anteriorly concerning for scar. There is no evidence of ischemia. He reports he is taking his medicines as prescribed. There is a history of cocaine use.
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
Subjective
Date of Service: February 03, 2024
He feels well and wants to go home
Objective
Labs:
02/03/24 04:27
02/03/24 04:27
Labs
Hgb 14.7 g/dL (13.0-18.0) 02/03/24 04:27
Hct 41.9 % (39.0-52.0) 02/03/24 04:27
Plt Count 141 10^3/uL (130-400) 02/03/24 04:27
Sodium 138 mmol/L (135-145) 02/03/24 04:27
Potassium 4.4 mmol/L (3.5-5.1) 02/03/24 04:27
BUN 23 mg/dl (9-20) H 02/03/24 04:27
Creatinine 1.1 mg/dL (0.7-1.3) 02/03/24 04:27
Glucose 98 mg/dl (70-99) 02/03/24 04:27
Troponins
02/01/24 02/01/24 02/01/24
13:53 14:00 20:16
Troponin I < 0.012 Cancelled 0.112 H* D
02/02/24 02/02/24 02/02/24
04:32 08:00 10:41
Troponin I 0.637 H* Cancelled 1.210 H* D
02/02/24 02/03/24
16:46 04:27
Troponin I 1.100 H* 0.762 H*
Vital Signs and I&O:
Vital Signs
Temp Pulse Resp BP Pulse Ox
97.6 F 64 20 124/82 100
02/03/24 12:24 02/03/24 12:30 02/03/24 12:24 02/03/24 12:23 02/03/24 12:24
Vital Signs
Temp Pulse Resp BP Pulse Ox
97.6 F 64 20 124/82 100
02/03/24 12:24 02/03/24 12:30 02/03/24 12:24 02/03/24 12:23 02/03/24 12:24
Intake & Output
02/01/24 02/02/24 02/03/24 02/04/24
06:59 06:59 06:59 06:59
Intake Total 1000 / 1000
Balance 1000 / 1000
Physical Exam
Physical Exam
GEN: AAOx3
HEENT: MMM
LUNGS: No wheeze
CV: SR
ABD: ND
EXT: No edema B/L
NEURO: Gross non-focal
SKIN: No rash
--- NOTE | 2024-02-03 15:03 | W.PN.HOSP.TC ---
Today's Communication/Plan
-
amiodarone 200 mg BID for 2 weeks then once daily thereafter
ASA, Plavix
F/u Cards, PCP outpatient
Assessment / Plan
Assessment / Plan
GEN: NAD. AAOx3
HEENT: EOMI, MMM
LUNGS: Diminished BS at bases B/L without audible wheeze
CV: Reg, S1/S2
ABD: soft, BS+, NT, ND
EXT: +2 B/P DP and PT pulses, +2 right radial pulse. No clubbing, cyanosis, lesions or edema B/L
NEURO: Gross non-focal
SKIN: Warm and dry. No rash
#Syncope
#V-fib
� Aspirin, add Plavix
� cardiac cath 730 - s/p 3.5 mm [place] to large terminal OM 02/01/24
Continue telemetry next�continue troponin trend until peak
� Continue Coreg
- amiodarone 200 mg BID for 2 weeks then once daily thereafter
-ICD reprogrammed per [employer] suggestions following shock for VF
-F/u Cards outpatient
#HFrEF
� EF of 24% in January 2021
� Cardiac cath 7/30 - s/p 3.5 mm [place] to large terminal OM 02/01/24
� Continue Lasix, Coreg, Entresto
#CAD
- s/p off-pump CABG with RIOS to LAD 06/16/17
-� Cardiac cath /30 - s/p 3.5 mm [place] to large terminal OM 02/01/24
� Continue aspirin, Brilinta
� Coreg, Entresto
� Crestor
#Elevated Troponin
-Most likely 2/2 to nonischemic myocardial injury
-most likely 2/2 to VF and shock
#DVT prophylaxis
� HSQ
More than 30 minutes spent in discharge including
Final examination of the patient
Summarizing hospital stay
Instructions for continuing care to all relevant caregivers
Preparation of discharge records, prescriptions, and referral forms
Total time spent (35 in minutes):
Anticipated Discharge: Today
Subjective/Interval History
-
Date of Service: February 03, 2024
No acute events overnight
Objective Data
-
Labs:
Laboratory Results
02/03/24
04:27
WBC 6.7
Hgb 14.7
Hct 41.9
Plt Count 141
Sodium 138
Potassium 4.4
Chloride 107
Carbon Dioxide 22
BUN 23 H
Creatinine 1.1
Glucose 98
Calcium 9.6
Vital Signs:
Vital Signs
Temp Pulse Resp BP Pulse Ox
97.6 F 64 20 124/82 100
02/03/24 12:24 02/03/24 12:30 02/03/24 12:24 02/03/24 12:23 02/03/24 12:24
I&O
02/02/24 02/03/24 02/04/24
06:59 06:59 06:59
Intake Total 1000 / 1000
Balance 1000 / 1000
Review of Systems
-
History Source: Patient
All other systems: Not reviewed unless documented
Data Reviewed
-
Medical Tests (Nuc Med, Echo etc): Image personally visualized and interpreted and Report Reviewed by me
Labs: Labs Reviewed by me
--- NOTE | 2024-02-03 15:06 | W.DS.TRANS ---
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
-
Discharge Instructions:
Discharge Diagnosis/Procedures Angioplasty with stent to left circumflex artery
Diet Low Cholesterol,2 Gram Sodium,Restrict fluids to
48 oz,Low Fat
Activity Other activity
Driving Restrictions No driving for 24 hours
Bathing Restrictions OK to Shower
Other Services Cardiac Rehab
Instructions:
Stand-Alone Forms: DC Instructions- Cath/EP Lab
Changes to Home Medications: Yes
Discharge Medications:
DC Medications w/original date entered in [facility]
aspirin 81 mg chewable tablet 81 mg PO DAILY Blood clot prevention/tx 06/15/17
furosemide 40 mg tablet 40 mg PO DAILY Heart Failure #60 tabs 11/01/20
rosuvastatin 10 mg tablet 10 mg PO QPM High cholesterol #60 tabs 11/01/20
allopurinol 100 mg tablet 100 mg PO TID Gout 02/01/24
carvedilol 3.125 mg tablet (Coreg) 3.125 mg PO BID Heart Failure 02/01/24
colchicine 0.6 mg tablet 0.6 mg PO DAILYPRN PRN gout flares 02/01/24
ibuprofen 200 mg tablet (Advil) 200 mg PO BIDPRN PRN mild pain 02/01/24
magnesium oxide 250 mg PO DAILY suppliment 02/01/24
sacubitril 24 mg-valsartan 26 mg tablet (Entresto) 1 tab PO BID Heart Failure 02/01/24
amiodarone 200 mg tablet 200 mg PO BID Arrhythmia #28 tabs 02/03/24
amiodarone 200 mg tablet 200 mg PO DAILY Arrhythmia #30 tabs 02/03/24
clopidogrel 75 mg tablet 75 mg PO DAILY Heart disease/condition #30 tabs 02/03/24
Home Medication Changes
amiodarone 200 mg tablet 200 mg PO BID Arrhythmia #28 tabs 02/03/24
amiodarone 200 mg tablet 200 mg PO DAILY Arrhythmia #30 tabs 02/03/24
clopidogrel 75 mg tablet 75 mg PO DAILY Heart disease/condition #30 tabs 02/03/24
Pending Results: No
== END 2024-02-03 15:45 | disposition home or self-care (01) | DRG 322 ==
LOC: IVU 11:51
PROVIDERS: Nurse Practitioner Adult Health; Physician Assistant Medical; ADMITTING PHYSICIAN Internal Medicine; EMERGENCY PHYSICIAN Emergency Medicine; FAMILY PHYSICIAN Internal Medicine; OTHER PHYSICIAN Internal Medicine Interventional Cardiology
PROC: 027034Z Dilation of Coronary Artery, One Artery with Drug-eluting Intraluminal Device, Percutaneous Approach (ICD-10-PCS; 2024-02-01)
PROC: B2151ZZ Fluoroscopy of Left Heart using Low Osmolar Contrast (ICD-10-PCS; 2024-02-01)
PROC: B2111ZZ Fluoroscopy of Multiple Coronary Arteries using Low Osmolar Contrast (ICD-10-PCS; 2024-02-01)
PROC: 4A023N7 Measurement of Cardiac Sampling and Pressure, Left Heart, Percutaneous Approach (ICD-10-PCS; 2024-02-01)
DX: I49.01 Ventricular fibrillation (principal); I50.22 Chronic systolic (congestive) heart failure; I5A Non-ischemic myocardial injury (non-traumatic); I11.0 Hypertensive heart disease with heart failure; I08.1 Rheumatic disorders of both mitral and tricuspid valves; I25.82 Chronic total occlusion of coronary artery; I25.10 Atherosclerotic heart disease of native coronary artery without angina pectoris; I25.5 Ischemic cardiomyopathy; E78.5 Hyperlipidemia, unspecified; Z79.82 Long term (current) use of aspirin; Z79.899 Other long term (current) drug therapy; Z95.810 Presence of automatic (implantable) cardiac defibrillator; Z86.73 Personal history of transient ischemic attack (TIA), and cerebral infarction without residual deficits; Z86.79 Personal history of other diseases of the circulatory system; Z45.02 Encounter for adjustment and management of automatic implantable cardiac defibrillator
CPT/HCPCS: 80048; 80053; 80061; 80306; 83735; 84484; 85025; 85027; 85347; 93005; 93306; 93459; 99285; 99406; C1725; C1769; C1874; C1894; C9600; Q9967

== ENCOUNTER → 2025-02-21 09:18 | Outpatient (REF) | payer OTHER, SELFPAY | LOC: HWRCS 09:18 | PROVIDERS: ATTENDING PHYSICIAN Internal Medicine Cardiovascular Disease; FAMILY PHYSICIAN Internal Medicine | DX: I47.20 Ventricular tachycardia, unspecified (principal) | CPT/HCPCS: 93306 ==